=== PATIENT | female | born 1945 | race Caucasian/White ===

== ENCOUNTER 2018-02-10 07:07 | Day surgery (SDC) | payer MEDICARE, OTHER ==
--- NOTE | 2018-02-09 11:43 | PCM.PREANE ---
<Leatha Garcia - Last Filed: 02/09/18 11:38> Preanesthetic Assessment - Anesthesia/Transfusion/Family Hx Anesthesia History: Prior Anesthesia Without Reaction Family History of Anesthesia Reaction: No Transfusion History: No Prior Transfusion(s) Intubation History: Unknown - Review of Systems Pulmonary: No Symptoms (COPD/quit smoking 10/13/2013 ETOH: quit 2012) Cardiovascular: No Symptoms (History of Atrial fibrillation on coumadin/HTN/ Left sided heart failure), Dyspnea on Exertion, Edema (left sided heart failure) Gastrointestinal: No Symptoms (GERD) Neurological: Dizziness Other: Reports: Easy Bleeding (on coumadin), Easy Bruising (on coumadin), Thyroid Problems (Hyperthyroidism) - Physical Assessment NPO Status Date: 02/09/18 Height: 5 ft 8 in Mental Status: Alert & Oriented x3 - Lab Values: All lab values reviewed and noted and within acceptable ranges to proceed with scheduled procedure. - Imaging/EKG Impressions: EKG: SB Echo: EF: 65-70% PFT's: 2017 Severe Obstructive ventilatory defect. - Allergies Allergies/Adverse Reactions: Allergies Allergy/AdvReac Type Severity Reaction Status Date / Time No Known Allergies Allergy Verified 02/09/18 12:55 - Anesthesia Plan Pre-Op Medication Ordered: Beta Emiliana Beta Emiliana: Carvedilol Med Last Dose Date: 02/10/18 - Acknowledgements Anesthesia Type Planned: MAC Pt an Appropriate Candidate for the Planned Anesthesia: Yes Alternatives and Risks of Anesthesia Discussed w Pt/Guardian: Yes Pt/Guardian Understands and Agrees with Anesthesia Plan: Yes PreAnesthesia Questionnaire Cardiovascular History: Reports: Afib (Chronically), Arrhythmia, CAD, Heart Failure Respiratory History: Reports: COPD Gastrointestinal History: Reports: GERD Musculoskeletal History: Reports: Back Pain, Chronic, Osteoarthritis - HOME MEDS Home Medications: Home Meds Amiodarone HCl 300 mg PO DAILY 08/02/16 [History] Aspirin [Halfprin] 81 mg PO BRK 08/02/16 [History] Digoxin [Lanoxin] 125 mcg PO DAILY 08/02/16 [History] Furosemide [Lasix] 40 mg PO DAILY 08/02/16 [History] Lisinopril [Prinivil] 2.5 mg PO DAILY 08/02/16 [History] Omeprazole 20 mg PO DAILY 08/02/16 [History] Spironolactone [Aldactone] 25 mg PO DAILY 08/02/16 [History] Warfarin [Coumadin] 5 mg PO DAILY 08/02/16 [History] atorvaSTATin [Lipitor] 10 mg PO BEDTIME 08/02/16 [History] Acetaminophen [Tylenol] 650 mg PO DAILY 02/09/18 [History] Carvedilol 3.125 mg PO DAILY 02/09/18 [History] Levothyroxine 25 mcg PO DAILY 02/09/18 [History] Phenazopyridine HCl [Pyridium] 100 mg PO ASDIRECTED 02/09/18 [History] - CURRENT (IN HOUSE) MEDS Current Meds: Current Medications Lactated Ringer's (Ringers, Lactated) 1,000 mls @ 125 mls/hr IV ASDIRECTED NINI Stop: 02/10/18 23:00 Last Admin: 02/10/18 07:43 Dose: 125 mls/hr Lidocaine/Sodium Bicarbonate (Buffered Lidocaine 1% In Ns 8.4%) 0.25 ml IDERM ONETIME PRN PRN Reason: Prior to IV Start Stop: 02/10/18 18:00 Sodium Chloride (Saline Flush) 10 ml FLUSH ASDIRECTED PRN PRN Reason: Keep Vein Open Stop: 02/10/18 18:00 Discontinued Medications Fentanyl (Sublimaze) Confirm Administered Dose 100 mcg .ROUTE .STK-MED ONE Stop: 02/10/18 07:17 Lidocaine HCl (Xylocaine-Mpf 1%) Confirm Administered Dose 4 mls @ as directed .ROUTE .STK-MED ONE Stop: 02/10/18 07:17 Propofol (Diprivan 20 Ml) Confirm Administered Dose 200 mg .ROUTE .STK-MED ONE Stop: 02/10/18 07:17 <Will Bryant - Last Filed: 02/10/18 07:56> Preanesthetic Assessment - Procedure Proposed Procedure: screening colonoscopy - Anesthesia/Transfusion/Family Hx Anesthesia History: Prior Anesthesia Without Reaction Family History of Anesthesia Reaction: No Transfusion History: No Prior Transfusion(s) Intubation History: Unknown - Review of Systems General: No Symptoms Pulmonary: No Symptoms, Cough Cardiovascular: No Symptoms, Dyspnea on Exertion, Edema Gastrointestinal: No Symptoms Neurological: No Symptoms Other: Reports: Easy Bleeding, Easy Bruising, Thyroid Problems - Physical Assessment NPO Status Time: 17:00 (sip with am pill) Pulse: 59 O2 Sat by Pulse Oximetry: 97 Respiratory Rate: 16 Blood Pressure: 126/55 Temperature: 98.7 F Weight: 75 kg ASA Class: 3 Mental Status: Alert & Oriented x3 Airway Class: Mallampati = 2 Dentition: Reports: Dentures (top and bottom- removed bottom) Thyro-Mental Finger Breadths: 3 Mouth Opening Finger Breadths: 3 ROM/Head Extension: Full Lungs: Clear to Auscultation, Normal Respiratory Effort, Decreased Breath Sounds Cardiovascular: Regular Rate, Regular Rhythm - Lab Values: 02/10/18 PT 17.4 INR 1.61 - Blood Blood Available: No - Anesthesia Plan Pre-Op Medication Ordered: Beta Emiliana Beta Emiliana: Carvedilol Med Last Dose Time: 05:30 - Acknowledgements Anesthesia Type Planned: MAC Pt an Appropriate Candidate for the Planned Anesthesia: Yes Alternatives and Risks of Anesthesia Discussed w Pt/Guardian: Yes Pt/Guardian Understands and Agrees with Anesthesia Plan: Yes PreAnesthesia Questionnaire Cardiovascular History: Reports: Afib, Arrhythmia, CAD, Heart Failure Respiratory History: Reports: COPD Gastrointestinal History: Reports: GERD Musculoskeletal History: Reports: Back Pain, Chronic, Osteoarthritis Neurological History: Reports: None Endocrine/Metabolic History: Reports: Hypothyroidism Hematologic History: Reports: None Immunologic History: Reports: None Oncologic (Cancer) History: Reports: None - Past Surgical History Cardiovascular Surgical History: Reports: Other (See Below) (cardiac ablation attempted) Female Surgical History: Reports: Other (See Below) (breast biopsy) - SUBSTANCE USE Smoking Status *Q: Former Smoker Tobacco Use Within Last Twelve Months: No Second Hand Smoke Exposure: No Days Per Week of Alcohol Use: 0 Recreational Drug Use History: No
[~2018-02-10 07:07] MED LIST: Lactated Ringers 1,000 ML IV SCH; Lidocaine 1%/Sod Bicarbonate in NS 8.4% 1 ML Syringe IDERM PRN; Sodium Chloride 0.9% 10 ML Syringe FLUSH PRN
[2018-02-10] MEDS ORDERED: Lidocaine 1% 4 ML ONE (07:16)
[2018-02-10] MEDS ORDERED: Propofol 200 MG/20 ML SDV ONE (07:16)
[2018-02-10] MEDS ORDERED: fentaNYL 100 MCG/2 ML SDV ONE (07:16)
[2018-02-10] MEDS ORDERED: ePHEDrine/Normal Saline 25 MG/5 ML Syringe ONE (09:23)
[2018-02-10] MEDS ORDERED: Lactated Ringers 1,000 ML ONE (09:29)
[2018-02-10 09:51] VITALS: BP 100/83
--- NOTE | 2018-02-10 09:51 | PCM.OPNOTE ---
- General Post-Op/Procedure Note Date of Surgery/Procedure: 02/10/18 Operative Procedure(s): colonoscopy to cecum Pre Op Diagnosis: family hx of colon cancer Post-Op Diagnosis: Same Anesthesia Technique: MAC Primary Surgeon: Aman Paniagua EBL in mLs: 0 Complications: None Condition: Good
--- NOTE | 2018-02-10 09:55 | PCM48HPAN ---
Post Anesthesia Note - EVALUATION WITHIN 48HRS OF ANESTHETIC Vital Signs in Normal Range: Yes Patient Participated in Evaluation: Yes Respiratory Function Stable: Yes Airway Patent: Yes Cardiovascular Function Stable: Yes Hydration Status Stable: Yes Pain Control Satisfactory: Yes Nausea and Vomiting Control Satisfactory: Yes Pulse Rate: 58 SaO2: 94 Resp Rate: 15 Temperature: 36.7 C Blood Pressure: 100/83 Pulse Rate: 58
--- NOTE | 2018-02-10 12:45 | OR ---
DATE OF OPERATION: 02/10/2018 SURGEON: Aman Paniagua MD PREOPERATIVE DIAGNOSIS: Family history of colon cancer. POSTOPERATIVE DIAGNOSIS: Family history of colon cancer. FINDINGS: Scattered diverticulum throughout the colon in mild number. There were no angiodysplasias, neoplasias, large tumor masses, or ulcerations. OPERATION PERFORMED: Colonoscopy to cecum done under IV sedation. DESCRIPTION OF PROCEDURE: The patient was taken to the endoscopy room, placed in a supine position, connected to monitoring equipment, given IV sedation, placed in left lateral position. Perianal area was inspected and was normal. Rectal exam showed good sphincter tone. Video Olympus colonoscope was then introduced into the rectum and threaded up without problem to the cecum, where the cecal anatomy was seen showing the ileocecal valve. Prep was excellent. [place] cleansing score grade A, and the scope was slowly withdrawn showing the cecum, ascending colon, transverse colon, descending colon, sigmoid colon, and rectum. The above noted was found and recommendation is followup colonoscopy for surveillance for colon cancer because of her family history in 5 years. ANESTHESIA: ESTIMATED BLOOD LOSS: MMODAL /[id number]
== END 2018-02-10 10:23 | disposition home or self-care (01) ==
LOC: JD.SDS 07:07
PROVIDERS: ATTEND Surgery
DX: Z12.11 Encounter for screening for malignant neoplasm of colon (principal); K57.30 Diverticulosis of large intestine without perforation or abscess without bleeding; I48.91 Unspecified atrial fibrillation; I10 Essential (primary) hypertension; E78.2 Mixed hyperlipidemia; E05.90 Thyrotoxicosis, unspecified without thyrotoxic crisis or storm; Z79.01 Long term (current) use of anticoagulants; Z79.82 Long term (current) use of aspirin; Z79.899 Other long term (current) drug therapy; Z87.891 Personal history of nicotine dependence; Z80.0 Family history of malignant neoplasm of digestive organs
CPT/HCPCS: 36415; 85610; J2001; J2704; J3010; J7050; J7120

== ENCOUNTER 2018-10-04 20:05 | Emergency (ER) | payer MEDICARE, OTHER ==
[2018-10-04 20:22] VITALS: BP 158/105
--- NOTE | 2018-10-04 21:19 | EDM.PDOC ---
<Eneida Summers - Last Filed: 10/04/18 22:55> ED HPI GENERAL MEDICAL PROBLEM - General Chief Complaint: General Stated Complaint: TOOK WRONG MED/HEART RACING Time Seen by Provider: 10/04/18 20:41 Source of Information: Reports: Patient History Limitations: Reports: No Limitations - History of Present Illness INITIAL COMMENTS - FREE TEXT/NARRATIVE: 72 y/o female presents to ER with cc " I took a extra 1/2 digoxin." I think I am having a panic attack. Onset: Today Onset Date: 10/04/18 Onset Time: 19:30 Duration: Resolved Prior to Arrival Improves with: Reports: None Worsens with: Reports: None (denies chest pain or sob) - Related Data Allergies Allergy/AdvReac Type Severity Reaction Status Date / Time No Known Allergies Allergy Verified 10/04/18 20:22 Home Meds: Home Meds Amiodarone HCl 300 mg PO DAILY 08/02/16 [History] Aspirin [Halfprin] 81 mg PO BRK 08/02/16 [History] Digoxin [Lanoxin] 125 mcg PO DAILY 08/02/16 [History] Furosemide [Lasix] 40 mg PO DAILY 08/02/16 [History] Lisinopril [Prinivil] 2.5 mg PO DAILY 08/02/16 [History] Omeprazole 20 mg PO DAILY 08/02/16 [History] Spironolactone [Aldactone] 25 mg PO DAILY 08/02/16 [History] Warfarin [Coumadin] 5 mg PO DAILY 08/02/16 [History] atorvaSTATin [Lipitor] 10 mg PO BEDTIME 08/02/16 [History] Acetaminophen [Tylenol] 650 mg PO DAILY 02/09/18 [History] Carvedilol 3.125 mg PO DAILY 02/09/18 [History] Levothyroxine 25 mcg PO DAILY 02/09/18 [History] Phenazopyridine HCl [Pyridium] 100 mg PO ASDIRECTED 02/09/18 [History] ED ROS GENERAL - Review of Systems Review Of Systems: See Below Constitutional: Reports: No Symptoms HEENT: Reports: No Symptoms Respiratory: Reports: No Symptoms Cardiovascular: Reports: No Symptoms Endocrine: Reports: No Symptoms GI/Abdominal: Reports: No Symptoms : Reports: No Symptoms Musculoskeletal: Reports: No Symptoms Skin: Reports: No Symptoms Neurological: Reports: No Symptoms Psychiatric: Reports: No Symptoms Hematologic/Lymphatic: Reports: No Symptoms Immunologic: Reports: No Symptoms ED EXAM, GENERAL - Physical Exam Exam: See Below Exam Limited By: No Limitations General Appearance: Alert, WD/WN, No Apparent Distress Respiratory/Chest: No Respiratory Distress, Lungs Clear, Normal Breath Sounds, No Accessory Muscle Use, Chest Non-Tender Cardiovascular: Normal Peripheral Pulses, Regular Rate, Rhythm (atrial fib), No Edema, No Gallop, No JVD, No Murmur, No Rub, Irregularly Irregular Course - Vital Signs Last Recorded V/S: Last Vital Signs Temp 97.8 F 10/04/18 20:19 Pulse 104 H 10/04/18 20:19 Resp 20 10/04/18 20:19 BP 158/105 H 10/04/18 20:19 Pulse Ox Departure - Departure Disposition: Home, Self-Care 01 Clinical Impression: Accidental medication overdose Qualifiers: Encounter type: initial encounter Qualified Code(s): T50.901A - Poisoning by unspecified drugs, medicaments and biological substances, accidental ( unintentional), initial encounter - Discharge Information Instructions: Accidental Overdose Referrals: Adalid Chavez MD [Primary Care Provider] - Forms: ED Department Discharge Additional Instructions: The extra medication you took this evening is not a danger to you. rest, drink plenty of water to maintain hydration. You can safely continue taking all of your medications as previously prescribed. 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 (See Below) Other SUSTAINABLE LANDSCAPE ARCHITECT History: breast biopsy Musculoskeletal History: Reports: Back Pain, Chronic, Osteoarthritis Neurological History: Reports: None Psychiatric History: Reports: Addiction Endocrine/Metabolic History: Reports: Hypothyroidism Hematologic History: Reports: None Immunologic History: Reports: None Oncologic (Cancer) History: Reports: None Dermatologic History: Reports: None - Past Surgical History Head Surgeries/Procedures: Reports: None HEENT Surgical History: Reports: Oral Surgery Cardiovascular Surgical History: Reports: Other (See Below) Female Surgical History: Reports: Other (See Below) Oncologic Surgical History: Reports: Biopsy of Breast Dermatological Surgical History: Reports: None Social & Family History - Tobacco Use Smoking Status *Q: Never Smoker - Caffeine Use Caffeine Use: Reports: Coffee - Recreational Drug Use Recreational Drug Use: No - Living Situation & Occupation Occupation: Retired Course - Re-Assessments/Exams Free Text/Narrative Re-Assessment/Exam: 10/06/18 11:33 patient was evaluated by ELA Shirley. I also discussed hx, evaluated patient. I agree with hx, exam, treatment plan as documented. Departure - Departure Time of Disposition: 21:17 Condition: Fair
== END 2018-10-04 21:29 | disposition home or self-care (01) ==
LOC: JD.ED 20:05
DX: T46.0X1A Poisoning by cardiac-stimulant glycosides and drugs of similar action, accidental (unintentional), initial encounter (principal); I50.9 Heart failure, unspecified; I48.91 Unspecified atrial fibrillation; E03.9 Hypothyroidism, unspecified; K21.9 Gastro-esophageal reflux disease without esophagitis; Z79.82 Long term (current) use of aspirin; Z79.899 Other long term (current) drug therapy; Z79.01 Long term (current) use of anticoagulants; Z98.890 Other specified postprocedural states
CPT/HCPCS: 99282; 99284

== ENCOUNTER 2019-01-16 00:37 | Emergency (ER) | payer MEDICARE, OTHER ==
[2019-01-16 00:52] VITALS: BP 145/82
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
== END 2019-01-16 01:42 | disposition home or self-care (01) ==
LOC: JD.ED 00:37
DX: T65.891A Toxic effect of other specified substances, accidental (unintentional), initial encounter (principal); H10.213 Acute toxic conjunctivitis, bilateral; J44.9 Chronic obstructive pulmonary disease, unspecified; E03.9 Hypothyroidism, unspecified; K21.9 Gastro-esophageal reflux disease without esophagitis; I48.91 Unspecified atrial fibrillation; I25.10 Atherosclerotic heart disease of native coronary artery without angina pectoris; I50.9 Heart failure, unspecified; Z79.82 Long term (current) use of aspirin; Z79.01 Long term (current) use of anticoagulants; Z79.899 Other long term (current) drug therapy
CPT/HCPCS: 99281; 99283

== ENCOUNTER 2021-05-20 09:09 | Emergency (ER) | payer OTHER, MEDICARE ==
--- NOTE | 2021-05-20 10:57 | EDM.PDOC ---
ED HPI GENERAL MEDICAL PROBLEM - General Chief Complaint: Lower Extremity Injury/Pain Stated Complaint: SWOLLEN FOOT Time Seen by Provider: 05/20/21 10:25 Source of Information: Reports: Patient History Limitations: Reports: No Limitations - History of Present Illness INITIAL COMMENTS - FREE TEXT/NARRATIVE: The patient presents with left foot swelling and pain. She also has confusion after a fall about 10 days ago. She is on coumadin. She fell out on her street. She is not sure how long she was out maybe a few seconds. She had a headache. She did not get seen right away. She has a slight headache but she is more concerned because she has been confused. She also has some swelling in her left ankle and lower leg for a few days. She did not hurt it as far as she knows. She had COVID in April. She has no fever, chills, cough, chest pain, shortness of breath, abdominal pain, nausea, vomiting, diarrhea, numbness or weakness. Onset: Gradual Duration: Day(s): (10) Location: Reports: Head, Lower Extremity, Left Quality: Reports: Ache Severity: Mild Improves with: Reports: None Worsens with: Reports: None Associated Symptoms: Reports: Headaches. Denies: Chest Pain, Cough, Fever/Chills, Nausea/Vomiting, Shortness of Breath - Related Data Allergies Allergy/AdvReac Type Severity Reaction Status Date / Time No Known Allergies Allergy Verified 05/20/21 10:20 Home Meds: Home Meds Amiodarone HCl 300 mg PO DAILY 08/02/16 [History] Aspirin [Halfprin] 81 mg PO BRK 08/02/16 [History] Digoxin [Lanoxin] 125 mcg PO DAILY 08/02/16 [History] Furosemide [Lasix] 40 mg PO DAILY 08/02/16 [History] Lisinopril [Prinivil] 2.5 mg PO DAILY 08/02/16 [History] Omeprazole 20 mg PO DAILY 08/02/16 [History] Spironolactone [Aldactone] 25 mg PO DAILY 08/02/16 [History] Warfarin [Coumadin] 5 mg PO DAILY 08/02/16 [History] atorvaSTATin [Lipitor] 10 mg PO BEDTIME 08/02/16 [History] Acetaminophen [Tylenol] 650 mg PO DAILY 02/09/18 [History] Levothyroxine 25 mcg PO DAILY 02/09/18 [History] Phenazopyridine HCl [Pyridium] 100 mg PO ASDIRECTED 02/09/18 [History] carvediloL [Carvedilol] 3.125 mg PO DAILY 02/09/18 [History] Past Medical History Cardiovascular History: Reports: Afib, Arrhythmia, CAD, Heart Failure Other Cardiovascular History: left heart failure, edema Respiratory History: Reports: COPD Other Respiratory History: chronic airway obstruction, abestos exposure Gastrointestinal History: Reports: GERD Genitourinary History: Reports: Other (See Below) Other Genitourinary History: elevated serum creatinine [employer] C[employer] MANAGER History: Reports: Other (See Below) 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 Musculoskeletal History: Reports: Back Pain, Chronic, Osteoarthritis Neurological History: Reports: None Psychiatric History: Reports: Addiction Endocrine/Metabolic History: Reports: Hypothyroidism Hematologic History: Reports: None Immunologic History: Reports: None Oncologic (Cancer) History: Reports: None Dermatologic History: Reports: None - Past Surgical History Head Surgeries/Procedures: Reports: None HEENT Surgical History: Reports: Oral Surgery Cardiovascular Surgical History: Reports: Other (See Below) Female Surgical History: Reports: Other (See Below) Oncologic Surgical History: Reports: Biopsy of Breast Dermatological Surgical History: Reports: None Social & Family History - Caffeine Use Caffeine Use: Reports: Coffee - Living Situation & Occupation Occupation: Retired Review of Systems - Review of Systems Review Of Systems: See Below Constitutional: Reports: No Symptoms Eyes: Reports: No Symptoms Ears: Reports: No Symptoms Nose: Reports: No Symptoms Mouth/Throat: Reports: No Symptoms Respiratory: Reports: No Symptoms Cardiovascular: Reports: No Symptoms GI/Abdominal: Reports: No Symptoms Genitourinary: Reports: No Symptoms Musculoskeletal: Reports: Other (Left leg swelling and slight pain) Neurological: Reports: Headache ED EXAM, GENERAL - Physical Exam Exam: See Below Exam Limited By: No Limitations General Appearance: Alert, No Apparent Distress Ears: Normal External Exam Nose: Normal Inspection Head: Other (Mild tenderness to the occpipital region with some edema and ecchymosis) Neck: Normal Inspection, Supple, Non-Tender Respiratory/Chest: No Respiratory Distress, Lungs Clear, Normal Breath Sounds Cardiovascular: Regular Rate, Rhythm, No Edema, No Murmur GI/Abdominal: Soft, Non-Tender, No Organomegaly, No Mass Extremities: Other (Mild pain upon palpation to the mid leg with edema to the left knee, leg and left ankle. Good sensation and pulses distally.) Course - Vital Signs Last Recorded V/S: Last Vital Signs Temp 96.7 F L 05/20/21 10:20 Pulse 60 05/20/21 10:20 Resp 18 05/20/21 10:20 BP 137/74 05/20/21 10:20 Pulse Ox 95 05/20/21 10:20 - Orders/Labs/Meds Orders: Active Orders 24 hr Category Date Time Status Cardiac Monitoring [RC] . DIRECTED Care 05/20/21 10:44 Active Labs: Laboratory Tests 05/20/21 05/20/21 05/20/21 Range/Units 11:15 11:15 11:15 WBC 4.29 (3.98-10.04) K/mm3 RBC 4.22 (3.98-5.22) M/mm3 Hgb 13.5 (11.2-15.7) gm/dl Hct 41.6 (34.1-44.9) % MCV 98.6 H D (79.4-94.8) fl MCH 32.0 (25.6-32.2) pg MCHC 32.5 (32.2-35.5) g/dl RDW Std Deviation 51.3 H (36.4-46.3) fL Plt Count 225 (182-369) K/mm3 MPV 11.3 (9.4-12.3) fl Neut % (Auto) 72.8 H (34.0-71.1) % Lymph % (Auto) 19.3 (19.3-51.7) % [place] % (Auto) 6.5 (4.7-12.5) % Eos % (Auto) 0.7 (0.7-5.8) Baso % (Auto) 0.7 (0.1-1.2) % Neut # (Auto) 3.12 (1.56-6.13) K/mm3 Lymph # (Auto) 0.83 L (1.18-3.74) K/mm3 [place] # (Auto) 0.28 (0.24-0.36) K/mm3 Eos # (Auto) 0.03 L (0.04-0.36) K/mm3 Baso # (Auto) 0.03 (0.01-0.08) K/mm3 PT 15.6 H (9.7-12.0) SECONDS INR 1.42 APTT 31.7 H (21.7-31.4) SECONDS Sodium 136 (136-145) mEq/L Potassium 4.1 (3.5-5.1) mEq/L Chloride 98 (98-107) mEq/L Carbon Dioxide 31 (21-32) mEq/L Anion Gap 11.1 (5-15) BUN 17 (7-18) mg/dL Creatinine 1.4 H (0.55-1.02) mg/dL Est Cr Clr Drug Dosing 32.82 mL/min Estimated GFR (MDRD) 37 (>60) mL/min BUN/Creatinine Ratio 12.1 L (14-18) Glucose 84 (70-99) mg/dL Calcium 8.7 (8.5-10.1) mg/dL Total Bilirubin 1.0 (0.2-1.0) mg/dL AST 15 (15-37) U/L ALT 16 (14-59) U/L Alkaline Phosphatase 58 (46-116) U/L Total Protein 7.7 (6.4-8.2) g/dl Albumin 4.0 (3.4-5.0) g/dl Globulin 3.7 gm/dL Albumin/Globulin Ratio 1.1 (1-2) - Re-Assessments/Exams Free Text/Narrative Re-Assessment/Exam: 05/20/21 10:[address] of her head, x-ray of her left lower leg, US of her left leg and labs. 05/20/21 12:39 The x-ray of her leg shows some mild degenerative change. Her CBC look good. Her creatinine is elevated at 1.4. Her INR is 1.42. Her US of her leg shows no DVT. The CT of her head shows mild senescent change as described above. Nothin g acute is appreciated on noncontrast head CT study. I will have her continue her meds and elevate the leg and use compression stocking. Departure - Departure Time of Disposition: 12:45 Disposition: Home, Self-Care 01 Condition: Good Clinical Impression: Leg edema, left Fall Qualifiers: Encounter type: initial encounter Qualified Code(s): W19.XXXA - Unspecified fall, initial encounter Concussion Qualifiers: Encounter type: initial encounter Loss of consciousness presence/duration: without LOC Qualified Code(s): S06.0X0A - Concussion without loss of consciousness, initial encounter - Discharge Information *PRESCRIPTION DRUG MONITORING PROGRAM REVIEWED*: Not Applicable *COPY OF PRESCRIPTION DRUG MONITORING REPORT IN PATIENT JOSE: Not Applicable Referrals: Adalid Chavez MD [Primary Care Provider] - 1 Week Forms: ED Department Discharge Additional Instructions: Take your medications as prescribed. Try to elevate your leg as much as you can for a few days. Try to wear the compression stocking. If they are to tight don't use them. You may also try an SANTO wrap. Follow up with Dr Chavez or one of his partners within a week. Please return if you are worse. Sepsis Event Note (ED) - Evaluation Sepsis Screening Result: No Definite Risk - Focused Exam Vital Signs: Vital Signs Temp Pulse Resp BP Pulse Ox 05/20/21 10:20 96.7 F L 60 18 137/74 95 - My Orders Last 24 Hours: My Active Orders 05/20/21 10:44 Cardiac Monitoring [RC] . DIRECTED - Assessment/Plan Last 24 Hours: My Active Orders 05/20/21 10:44 Cardiac Monitoring [RC] . DIRECTED
--- NOTE | 2021-05-20 11:22 | CR ---
Left tibia and fibula: AP and lateral views of the left tibia and fibula were obtained. Comparison: No prior correlating study is available. Plantar spur is noted. Small soft tissue calcifications are seen within the anterior castaneda which are believed to be incidental. Bony structures are osteopenic. Soft tissue swelling appears to be present around the ankle. Mild degenerative change is partially visualized within the midfoot. No fracture or other bony abnormality is appreciated. Impression: 1. Findings as described above. 2. Nothing acute is appreciated on left tibia and fibula study. Diagnostic code #2
--- NOTE | 2021-05-20 11:31 | US ---
Left left lower extremity deep venous ultrasound: Duplex and color Doppler evaluation was obtained of the left common femoral, proximal greater saphenous, superficial femoral, popliteal, posterior tibial peroneal veins. Right common femoral vein was also evaluated. Comparison: No prior venous imaging is available. Findings: Normal phasic flow, augmentation and compression are seen. Impression: 1. No findings of deep venous thrombosis within the left lower extremity or within the right common femoral vein. Diagnostic code #1
--- NOTE | 2021-05-20 11:48 | CT ---
Head CT Technique: Multiple axial sections through the brain were obtained. Intravenous contrast was not utilized. Reconstructed coronal and sagittal images were obtained. Comparison: No prior intracranial imaging is available. Findings: Ventricles along with basal cisterns and sulci over the convexities are mildly prominent. Scattered diminished density is noted within the periventricular and subcortical white matter which is most likely due to small vessel ischemic demyelination change. Minimal lacunar infarct is noted within the left basal ganglia. No other abnormal parenchymal densities are seen. No evidence of intracranial hemorrhage is seen. No midline shift or mass-effect is seen. Bone window settings were reviewed. Visualized mastoid sinuses and paranasal sinuses show nothing acute. No acute calvarial abnormality is appreciated. Impression: 1. Mild senescent change as described above. 2. Nothing acute is appreciated on noncontrast head CT study. Diagnostic code #2
[2021-05-20 13:13] VITALS: BP 127/67; PULSE 56
== END 2021-05-20 12:50 | disposition home or self-care (01) ==
LOC: JD.ED 09:09
DX: S06.0X0A Concussion without loss of consciousness, initial encounter (principal); S00.03XA Contusion of scalp, initial encounter; R60.0 Localized edema; I48.91 Unspecified atrial fibrillation; I25.10 Atherosclerotic heart disease of native coronary artery without angina pectoris; I50.9 Heart failure, unspecified; J44.9 Chronic obstructive pulmonary disease, unspecified; K21.9 Gastro-esophageal reflux disease without esophagitis; M19.90 Unspecified osteoarthritis, unspecified site; E03.9 Hypothyroidism, unspecified; Z79.82 Long term (current) use of aspirin; Z79.01 Long term (current) use of anticoagulants; Z79.899 Other long term (current) drug therapy; W19.XXXA Unspecified fall, initial encounter; Y92.410 Unspecified street and highway as the place of occurrence of the external cause
CPT/HCPCS: 36415; 70450; 70450-26; 73590-26-LT; 73590-LT; 80053; 85025; 85610; 85730; 93971-26-LT; 93971-LT; 99284-25

== ENCOUNTER 2021-11-23 22:29 | Emergency (ER) | payer MEDICARE, OTHER ==
[2021-11-23 22:44] VITALS: BP 128/70; PULSE 74
== END 2021-11-23 23:31 | disposition home or self-care (01) ==
LOC: JD.ED 22:29
DX: Z63.5 Disruption of family by separation and divorce (principal); I48.91 Unspecified atrial fibrillation; J44.9 Chronic obstructive pulmonary disease, unspecified; E03.9 Hypothyroidism, unspecified; M19.90 Unspecified osteoarthritis, unspecified site; K21.9 Gastro-esophageal reflux disease without esophagitis; Z79.82 Long term (current) use of aspirin; Z79.899 Other long term (current) drug therapy; Z87.891 Personal history of nicotine dependence
CPT/HCPCS: 99282; 99283

== ENCOUNTER 2022-08-18 09:50 | Day surgery (SDC) | payer MEDICARE, OTHER ==
[~2022-08-18 09:50] MED LIST changes: +Cefuroxime 10 MG/ML SYRINGE EYELF SCH; -Lactated Ringers 1,000 ML IV SCH; +Lidocaine 1% PF 2 ML SDV INJECT SCH; -Lidocaine 1%/Sod Bicarbonate in NS 8.4% 1 ML Syringe IDERM PRN; +Pilocarpine 4% Ophth Soln 15 ML Bot EYELF SCH; -Sodium Chloride 0.9% 10 ML Syringe FLUSH PRN
[2022-08-18] MEDS: Polymyxin B/Trimethoprim 10 ML Bottle EYELF SCH ×4 (09:57→12:00)
[2022-08-18] MEDS: Brimonidine 0.2% Ophth Soln 5 ML Bottle EYELF SCH ×3 (10:02→12:00)
[2022-08-18] MEDS: Phenylephrine 2.5% Ophth Soln 2 ML Bot EYELF SCH ×5 (10:06→11:24)
[2022-08-18] MEDS: Tropicamide 1% Ophth Soln 15 ML Bottle EYELF SCH ×5 (10:19→11:20)
[2022-08-18] MEDS: Tetracaine HCl/PF 0.5% 4 ML Bottle EYEBOTH SCH ×4 (11:15→11:36)
[2022-08-18 12:18] VITALS: BP 104/67; PULSE 78
== END 2022-08-18 12:14 | disposition home or self-care (01) ==
LOC: JD.SDS 09:50
PROVIDERS: ATTEND Ophthalmology
DX: H25.813 Combined forms of age-related cataract, bilateral (principal); H40.053 Ocular hypertension, bilateral; H16.103 Unspecified superficial keratitis, bilateral; H16.223 Keratoconjunctivitis sicca, not specified as Sjogren's, bilateral; H02.831 Dermatochalasis of right upper eyelid; H02.834 Dermatochalasis of left upper eyelid; H21.81 Floppy iris syndrome; H21.42 Pupillary membranes, left eye; H40.9 Unspecified glaucoma; I11.0 Hypertensive heart disease with heart failure; I50.9 Heart failure, unspecified; K21.9 Gastro-esophageal reflux disease without esophagitis; E03.9 Hypothyroidism, unspecified; I48.0 Paroxysmal atrial fibrillation; J44.9 Chronic obstructive pulmonary disease, unspecified; M19.90 Unspecified osteoarthritis, unspecified site; Z87.891 Personal history of nicotine dependence; Z98.890 Other specified postprocedural states; Z79.899 Other long term (current) drug therapy; Z79.890 Hormone replacement therapy; Z79.01 Long term (current) use of anticoagulants
CPT/HCPCS: 66982; A9270; C1780; J0697; J3490

== ENCOUNTER 2022-10-05 14:39 | Emergency (ER) | payer MEDICARE, OTHER ==
[2022-10-05 15:36] VITALS: BP 138/69; PULSE 62
[2022-10-05] MEDS ORDERED: Orphenadrine 100 MG Tab.ER PO ONE (15:37)
[2022-10-05] MEDS: HYDROmorphone 0.5 MG/0.5 ML Syringe IM ONE ×2 (16:01→16:55)
== END 2022-10-05 17:45 | disposition home or self-care (01) ==
LOC: JD.ED 14:39
DX: M54.50 Low back pain, unspecified (principal); I48.0 Paroxysmal atrial fibrillation; I50.9 Heart failure, unspecified; J44.9 Chronic obstructive pulmonary disease, unspecified; K21.9 Gastro-esophageal reflux disease without esophagitis; M19.90 Unspecified osteoarthritis, unspecified site; E03.9 Hypothyroidism, unspecified; Z79.01 Long term (current) use of anticoagulants; Z79.899 Other long term (current) drug therapy
CPT/HCPCS: 96372; 99283; A9270; J1170

== ENCOUNTER 2022-10-16 09:27 | Day surgery (SDC) | payer MEDICARE, OTHER ==
[2022-10-16] MEDS: Polymyxin B/Trimethoprim 10 ML Bottle EYERT SCH ×3 (09:23→11:11)
[~2022-10-16 09:27] MED LIST changes: +Brimonidine 0.2% Ophth Soln 5 ML Bottle EYERT SCH; -Cefuroxime 10 MG/ML SYRINGE EYELF SCH; +Cefuroxime 10 MG/ML SYRINGE EYERT SCH; +Phenylephrine 2.5% Ophth Soln 2 ML Bot EYERT SCH; -Pilocarpine 4% Ophth Soln 15 ML Bot EYELF SCH; +Pilocarpine 4% Ophth Soln 15 ML Bot EYERT SCH; +Polymyxin B/Trimethoprim 10 ML Bottle EYERT SCH; +Tetracaine HCl/PF 0.5% 4 ML Bottle EYEBOTH SCH; +Tropicamide 1% Ophth Soln 15 ML Bottle EYERT SCH
[2022-10-16] MEDS: Brimonidine 0.2% Ophth Soln 5 ML Bottle EYERT SCH ×3 (09:31→11:11)
[2022-10-16] MEDS: Phenylephrine 2.5% Ophth Soln 2 ML Bot EYERT SCH ×5 (09:35→10:49)
[2022-10-16] MEDS: Tropicamide 1% Ophth Soln 15 ML Bottle EYERT SCH ×4 (09:43→10:23)
[2022-10-16] MEDS: Tetracaine HCl/PF 0.5% 4 ML Bottle EYEBOTH SCH ×4 (10:35→11:00)
[2022-10-16 11:39] VITALS: BP 122/62; PULSE 60
== END 2022-10-16 11:30 | disposition home or self-care (01) ==
LOC: JD.SDS 09:27
PROVIDERS: ATTEND Ophthalmology
DX: H25.811 Combined forms of age-related cataract, right eye (principal); H21.81 Floppy iris syndrome; H21.41 Pupillary membranes, right eye; J44.9 Chronic obstructive pulmonary disease, unspecified; I48.0 Paroxysmal atrial fibrillation; I50.9 Heart failure, unspecified; M19.90 Unspecified osteoarthritis, unspecified site; E03.9 Hypothyroidism, unspecified; Z79.890 Hormone replacement therapy; Z79.899 Other long term (current) drug therapy
CPT/HCPCS: 66982; A9270; J0697; C1780; J3490